=== PATIENT | female | born 1990 | race Caucasian/White ===

== ENCOUNTER 2023-12-04 23:33 | Emergency (ER) | payer SELFPAY ==
[2023-12-05] MEDS ORDERED: Ibuprofen 200 MG TAB ONE (03:41)
== END 2023-12-05 03:38 | disposition home or self-care (01) ==
LOC: ERS 23:33
DX: R07.89 Other chest pain (principal); F17.210 Nicotine dependence, cigarettes, uncomplicated
CPT/HCPCS: 71045; 93005